=== PATIENT | female | born 1980 | race Caucasian/White ===

== ENCOUNTER 2016-06-22 19:51 | Emergency (ER) | payer OTHER ==
[~2016-06-22] VITALS: Ht 160 cm; Wt 159.8 kg
[2016-06-22 19:55] VITALS: TEMP 36.4; Ht 160 cm; Wt 159.8 kg
[2016-06-22] MEDS ORDERED: IBUP-1050 PO (20:28)
[2016-06-22] MEDS ORDERED: SODIUM CHLORIDE 0.9% 1000ML 1,000 ML IV STA (21:02)
[2016-06-22 21:09] LABS: BASO % 0.2 %; BASO ABS # 0.01 K/uL (0-0.2); COMPLETE YES; EOS % 1.9 %; HEMATOCRIT 38.3 % (37-47); IG% 0.2 %; LYMPH % 33.8 %; LYMPH ABS # 1.99 K/uL (1.2-3.4); MEAN CELL VOLUME 84.5 fL (80-100); MEAN CORPUSCULAR HEMOGLOBIN 28.7 pg (25-34); MEAN CORPUSCULAR HGB CONC 33.9 g/dl (32-36); MEAN PLATELET VOLUME 9.3 fL (7.4-10.4); MONO % 5.3 %; NEUT % 58.6 %; PLATELET COUNT 206 K/uL (130-400); RED BLOOD COUNT 4.53 M/uL (4.2-5.4); WHITE BLOOD COUNT 5.89 K/uL (4.8-10.8)
--- NOTE | 2016-06-22 21:32 | DIAGNOSTIC IMAGING REPORT ---
ABDOMEN AND PELVIS CT WITHOUT CONTRAST CT DOSE: 2089.01 mGy.cm HISTORY: Left-sided flank pain. TECHNIQUE: Multiaxial CT images of the abdomen and pelvis were performed without the use of intravenous and oral contrast according to the standard department stone protocol. COMPARISON STUDY: None. FINDINGS: No renal or ureteral stones. No hydronephrosis. The bladder is unremarkable. Punctate calcifications in the left deep pelvis are consistent with phleboliths. The uterus and bilateral ovaries are within normal limits. No pelvic free fluid. Suboptimal evaluation for bowel pathology due to the lack of intravenous and oral contrast. However, there is no definite bowel wall thickening or obstruction. Normal appendix. The lung bases are clear. Mild degenerative changes within the bilateral sacroiliac joints. No fractures within the visualized osseous structures. The unenhanced liver, spleen, pancreas, adrenal glands, and gallbladder are unremarkable. No retroperitoneal lymphadenopathy. IMPRESSION: No renal stones or hydronephrosis. Electronically signed by: Clark Fuentes M.D. 06/22/2016 9:31 PM Dictated Date/Time: 06/22/2016 9:25 PM
[2016-06-22 21:33] LABS: ALT/SGPT 26 U/L (12-78); BLOOD UREA NITROGEN 11 mg/dl (7-18); BUN/CREATININE RATIO 12.8 (10-20); CALCIUM 9.5 mg/dl (8.5-10.1); CARBON DIOXIDE 24 mmol/L (21-32); CHLORIDE 105 mmol/L (98-107); CREATININE 0.86 mg/dl (0.60-1.20); GLUCOSE 93 mg/dl (70-99); POTASSIUM 3.7 mmol/L (3.5-5.1); SODIUM 140 mmol/L (136-145)
[2016-06-22 21:36] LABS: ALKALINE PHOSPHATASE 114 U/L (45-117); AST/SGOT 20 U/L (15-37)
[2016-06-22 21:53] LABS: URINE APPEARANCE CLOUDY (CLEAR); URINE BILIRUBIN NEG (NEG); URINE COLOR YELLOW; URINE EPITHELIAL CELL AUTO >30 /lpf (0-5); URINE NITRITE NEG (NEG); URINE SPECIFIC GRAVITY 1.018 (1.000-1.030); UROBILINOGEN NEG (NEG)
[2016-06-22 22:06] LABS: MANUAL MICROSCOPIC REQUIRED? NO; REVIEW REQ? YES
[2016-06-22 22:57] VITALS: BP 145/90; PULSE 74; O2SAT 99
--- NOTE | 2016-06-23 19:41 | EMERGENCY ROOM VISIT NOTE ---
ED Visit Note First contact with patient: 20:50 Chief Complaint: Left-sided back pain. History of Present Illness: Ms. Waldron is a 35-year-old white female who ambulates into the ED accompanied by male friend complaining of left sided lower back pain. Historically patient denies any significant past medical history. Patient reports over the last week she has been having a sharp pain intermittently over the left side of her lower back. She places her discomfort just inferior to the costovertebral angle. She currently rates her discomfort 7 /10. She does report intermittently she feels like her pain moves from side to side a few centimeters and tonight there is mild radiation of her pain around the abdomen into the mid axillary area. She has not identified any aggravating or alleviating factors related to the pain. She reports she has been taken ibuprofen without relief of her discomfort. Additionally patient does report she is currently menstruating and her current cycle is normal with no excessive bleeding. She denies any associated symptoms including fevers, chills, sweats, skin eruptions, skin color changes, upper respiratory tract symptoms, cough, shortness of breath, abdominal pain, nausea, vomiting, diarrhea, constipation, rectal bleeding, black/tarry stools, urinary symptoms, hematuria, vaginal discharge, genital paresthesias, bowel and bladder dysfunction, lower extremity weakness/numbness/tingling. Review of Systems: As noted above in history of present illness. All body systems were reviewed and found to be negative as noted above. Past Medical History: Status post section. Current Medications: Ibuprofen. Allergies to Medications: Patient denies. Social History: Patient is currently employed; she feels safe in her home environment; she denies tobacco and alcohol use. Physical Examination: Vital Signs: Date Time Temp Pulse Resp B/P Pulse Ox O2 Delivery O2 Flow Rate FiO2 06/22/16 22:57 74 18 145/90 99 06/22/16 19:55 36.4 93 20 218/130 100 GENERAL: 35-year-old female in mild distress due to pain, nontoxic-appearing, afebrile and hemodynamically stable. NEUROLOGICAL: Awake, alert and oriented to person, place and time. Answering questions appropriately and following commands. Normal gait. Good hand eye coordination. No focal motor sensory deficits. SKIN: Warm, dry and pink. No soft tissue eruptions or trauma noted. HEENT: Atraumatic and normocephalic. PERRL. Sclera white and conjunctiva pink. No drainage from naris. Oral cavity moist and pink. Pharynx is nonerythematous or edematous. Speech normal. No lymphadenopathy. Trachea midline. No jugular venous distention. BACK: No tenderness over the bony thoracic or lumbar spine spine. No tenderness throughout the thoracic and lumbar paraspinous muscles. No palpable muscle spasm. No CVA tenderness. THORAX: Lungs sounds are clear to auscultation and equal bilaterally with symmetrical chest wall. No wheezing, rales or rhonchi. No crepitus, tenderness , subcutaneous air or deformities noted. HEART: Regular rate and rhythm. No gallops, rubs or murmurs are appreciated. ABDOMEN: Obese, soft and nontender. Positive bowel sounds in all quadrants. No guarding, rigidity or organomegaly. EXTREMITIES: Moves all extremities well on command and with purpose. All distal neurovascular statuses are intact and equal bilaterally. ED Course: Patient is assessed as noted above. Laboratory Testing: Test 06/22/16 20:05 06/22/16 20:40 Range/Units Urine Color YELLOW Urine Appearance CLOUDY CLEAR Urine pH 5.0 4.5-7.5 Urine Specific Bentley 1.018 1.000-1.030 Urine Protein NEG NEG Urine Glucose (UA) NEG NEG Urine Ketones NEG NEG Urine Occult Blood 3+ NEG Urine Nitrite NEG NEG Urine Bilirubin NEG NEG Urine Urobilinogen NEG NEG Urine Leukocyte Esterase SMALL NEG Urine WBC (Auto) 5-10 0-5 /hpf Urine RBC (Auto) 0-4 0-4 /hpf Urine Hyaline Casts (Auto) 0 0-5 /lpf Urine Epithelial Cells (Auto) >30 0-5 /lpf Urine Bacteria (Auto) 1+ NEG White Blood Count 5.89 4.8-10.8 K/uL Red Blood Count 4.53 4.2-5.4 M/uL Hemoglobin 13.0 12.0-16.0 g/dL Hematocrit 38.3 37-47 % Mean Corpuscular Volume 84.5 80-100 fL Mean Corpuscular Hemoglobin 28.7 25-34 pg Mean Corpuscular Hemoglobin Concent 33.9 32-36 g/dl Platelet Count 206 130-400 K/uL Mean Platelet Volume 9.3 7.4-10.4 fL Neutrophils (%) (Auto) 58.6 % Lymphocytes (%) (Auto) 33.8 % Monocytes (%) (Auto) 5.3 % Eosinophils (%) (Auto) 1.9 % Basophils (%) (Auto) 0.2 % Neutrophils # (Auto) 3.46 1.4-6.5 K/uL Lymphocytes # (Auto) 1.99 1.2-3.4 K/uL Monocytes # (Auto) 0.31 0.11-0.59 K/uL Eosinophils # (Auto) 0.11 0-0.5 K/uL Basophils # (Auto) 0.01 0-0.2 K/uL RDW Standard Deviation 41.8 36.4-46.3 fL RDW Coefficient of Variation 13.6 11.5-14.5 % Immature Granulocyte % (Auto) 0.2 % Immature Granulocyte # (Auto) 0.01 0.00-0.02 K/uL Sodium Level 140 136-145 mmol/L Potassium Level 3.7 3.5-5.1 mmol/L Chloride Level 105 98-107 mmol/L Carbon Dioxide Level 24 21-32 mmol/L Anion Gap 11.0 3-11 mmol/L Blood Urea Nitrogen 11 7-18 mg/dl Creatinine 0.86 0.60-1.20 mg/dl Est Creatinine Clear Calc Drug Dose 136.1 ml/min Estimated GFR () 100.7 Estimated GFR (Non- 86.9 BUN/Creatinine Ratio 12.8 10-20 Random Glucose 93 70-99 mg/dl Calcium Level 9.5 8.5-10.1 mg/dl Total Bilirubin 0.3 0.2-1 mg/dl Direct Bilirubin < 0.1 0-0.2 mg/dl Aspartate Amino Transf (AST/SGOT) 20 15-37 U/L Alanine Aminotransferase (ALT/SGPT) 26 12-78 U/L Alkaline Phosphatase 114 45-117 U/L Total Protein 8.3 6.4-8.2 gm/dl Albumin 4.1 3.4-5.0 gm/dl Globulin 4.2 2.5-4.0 gm/dl Albumin/Globulin Ratio 1.0 0.9-2 Lipase 105 73-393 U/L Noncontrast Abdominal/Pelvic CT: Was reviewed by myself and read by the radiologist showing no renal stones, no hydronephrosis, bladder is unremarkable , punctate calcifications deep in the left pelvis, uterus and bilateral ovaries are within normal limits, no free fluid in the pelvis, no definitive evidence of wall thickening or obstruction, normal-appearing appendix, mild degenerative changes of the bilateral sacroiliac joints without signs of fracture. Unenhanced liver, spleen, pancreas, treatment plans and gallbladder are unremarkable and no retroperitoneal lymphadenopathy. Patient was hydrated with normal saline; she was offered pain medications multiple times and refused. Patient was reassessed multiple times during her stay in the emergency department. Patient's case was reviewed with Dr. Ceron; we agreed on diagnostic approach, treatment, disposition and plan. Patient was educated about malou's findings and instructed on her treatment plan; she verbalizes understanding and agreement with this plan. Clinical Impression: Left-sided back pain. Decision-Making: Initially my differential diagnosis I considered kidney stone, pancreatitis, pyelonephritis, musculoskeletal disorder, and other causes. Disposition: Patient discharged home in stable condition accompanied by her ; prior to departure she was reassessed and subjectively reported she was feeling the same and rated her discomfort 7/10. Plan: Patient was encouraged to alternate ibuprofen and acetaminophen as needed for pain every 3 hours. Patient was encouraged to use bed lifting and moving techniques as we discussed. Patient was encouraged to follow-up with family physician for recheck in 3-4 days if no better. Patient was encouraged return ED for worsening/uncontrolled pain, fevers, bloody stools, bloody urine, lower extremity weakness/numbness/tingling, bowel and bladder dysfunction, genital/rectal paresthesias or any new/concerning symptoms.
== END 2016-06-22 22:54 | disposition home or self-care (01) ==
LOC: C.EDB 19:53
DX: M54.5 Low back pain (principal)

== ENCOUNTER 2016-11-27 08:17 | Emergency (ER) | payer OTHER ==
[~2016-11-27] VITALS: Ht 160 cm; Wt 160.3 kg
[~2016-11-27 08:17] MED LIST: IBUP-1050 PO
[2016-11-27 08:23] VITALS: TEMP 36.7; Ht 160 cm; Wt 160.3 kg
[2016-11-27 09:02] LABS: BASO % 0.3 %; BASO ABS # 0.02 K/uL (0-0.2); COMPLETE YES; EOS % 1.6 %; HEMATOCRIT 39.2 % (37-47); IG% 0.2 %; LYMPH % 24.4 %; LYMPH ABS # 1.53 K/uL (1.2-3.4); MEAN CELL VOLUME 84.5 fL (80-100); MEAN CORPUSCULAR HEMOGLOBIN 27.8 pg (25-34); MEAN CORPUSCULAR HGB CONC 32.9 g/dl (32-36); MONO % 5.4 %; NEUT % 68.1 %; PLATELET COUNT 194 K/uL (130-400); RED BLOOD COUNT 4.64 M/uL (4.2-5.4); WHITE BLOOD COUNT 6.26 K/uL (4.8-10.8)
[2016-11-27 09:05] LABS: URINE APPEARANCE CLEAR (CLEAR); URINE BILIRUBIN NEG (NEG); URINE COLOR YELLOW; URINE NITRITE NEG (NEG); URINE SPECIFIC GRAVITY 1.007 (1.000-1.030); UROBILINOGEN NEG (NEG); ZZUR CULT IF INDIC CLEAN CATCH NO
[2016-11-27] MEDS ORDERED: ASPI81TA28 PO (09:12)
--- NOTE | 2016-11-27 09:17 | DIAGNOSTIC IMAGING REPORT ---
CT OF THE HEAD WITHOUT CONTRAST CLINICAL HISTORY: Dizziness. Headache. COMPARISON STUDY: No previous studies for comparison. CT DOSE: 700.35 mGycm TECHNIQUE: Helical axial images of the head were obtained without IV contrast. Automated exposure control was utilized for the study. FINDINGS: No acute intracranial hemorrhage, midline shift or mass effect is present. Ventricular system is normal. Basilar cisterns are patent. There are no extra-axial collections. Freed-white differentiation is maintained. There are no findings to suggest acute dural sinus thrombosis or acute territorial infarct. There are no significant calvarial abnormalities. Visualized portions of the sinuses and mastoid air cells are clear. IMPRESSION: No acute intracranial findings. Electronically signed by: Edilberto Downing M.D. 11/27/2016 9:15 AM Dictated Date/Time: 11/27/2016 9:08 AM
[2016-11-27 09:20] LABS: ALT/SGPT 24 U/L (12-78); BLOOD UREA NITROGEN 7 mg/dl (7-18); BUN/CREATININE RATIO 7.2 (10-20); CALCIUM 9.6 mg/dl (8.5-10.1); CARBON DIOXIDE 24 mmol/L (21-32); CHLORIDE 104 mmol/L (98-107); GLUCOSE 104 mg/dl (70-99); POTASSIUM 3.6 mmol/L (3.5-5.1); SODIUM 138 mmol/L (136-145)
[2016-11-27 09:23] LABS: MANUAL MICROSCOPIC REQUIRED? NO; REVIEW REQ? NO
[2016-11-27 09:24] LABS: PREG INTERNAL NEGATIVE QC NEG CLEAR BACKGROUND; PREG INTERNAL POSITIVE QC POS CONTROL LINE
[2016-11-27 09:31] LABS: ALKALINE PHOSPHATASE 90 U/L (45-117); AST/SGOT 13 U/L (15-37)
[2016-11-27 10:10] LABS: LYME DISEASE AB IGG NEG (NEG)
[2016-11-27 10:36] LABS: LYME DISEASE AB IGM EQUIVOCAL (NEG)
--- NOTE | 2016-11-27 10:49 | EMERGENCY ROOM VISIT NOTE ---
History Report prepared by Palomo: Duglas Madrigal Under the Supervision of: Dr. Catherine Chung D.O. First contact with patient: 08:23 Chief Complaint: ILLNESS Stated Complaint: DIZZINESS,HEAD PAIN, BACK PAIN History of Present Illness The patient is a 36 year old female who presents to the Emergency Room with complaints of intermittent episodes of lightheadedness beginning five days ago. She states that her symptoms began with an episode of chills and "flushing" six days ago. She was seen by her PCP for those symptoms the next day and is now scheduled for a head MRI this week. The patient states that she has felt "in a daze" since she saw her PCP. Her symptoms include dizziness, mild intermittent abdominal pain, headache, and neck and left shoulder pain. She states that she has been feeling very anxious lately as well, and is unsure if her symptoms are related to panic. The patient denies any visual changes, chest pain, cough, leg swelling, nausea/vomiting/diarrhea, or SOB. She states that she has been hydrating well, but not been eating well lately. She had an echocardiogram and a stress test earlier this year which both were normal. The patient denies any recent changes to her diet. She denies any recent travel. She denies any recent trauma. The patient has a family history of stroke at a young age. Her brother had multiple strokes in his 20's due to a clotting disorder. She is on aspirin due to this family history, but is not known to have any clotting disorders. Source of History: patient Onset: five days ago Quality: other (lightheadedness) Timing: intermittent Associated Symptoms: + headache, + neck pain, + abdominal pain (intermittent ), No chest pain, No SOB Note: The patient denies any visual changes or leg swelling. She also complains of dizziness and left shoulder pain. Review of Systems See HPI for pertinent positives & negatives. A total of 10 systems reviewed and were otherwise negative. Past Medical & Surgical Medical Problems: (1) No Known Active Medical Problems Surgical Problems: (1) Previous section Family History No pertinent family history stated. Social History Smoking Status: Never Smoker Marital Status: Housing Status: lives with family Current/Historical Medications Scheduled Aspirin (Aspirin Ec), 81 MG PO DAILY Allergies Coded Allergies: No Known Allergies (Unverified , 11/27/16) Physical Exam Vital Signs Date Time Temp Pulse Resp B/P (MAP) Pulse Ox O2 Delivery O2 Flow Rate FiO2 11/27/16 10:58 77 16 148/82 98 11/27/16 10:26 80 16 157/79 84 173/109 89 173/134 11/27/16 09:55 84 16 155/83 100 Room Air 11/27/16 08:23 36.7 102 18 194/106 97 Room Air Physical Exam GENERAL: alert, anxious-appearing, well nourished, no distress, non-toxic EYE EXAM: normal conjunctiva, PERRL and EOM's grossly intact OROPHARYNX: no exudate, no erythema, lips, buccal mucosa, and tongue normal and mucous membranes are moist NECK: supple, no nuchal rigidity, no adenopathy, non-tender LUNGS: Clear to auscultation. Normal chest wall mechanics HEART: no murmurs, S1 normal and S2 normal ABDOMEN: Obese, abdomen soft, non-tender, normo-active bowel sounds, no masses, no rebound or guarding. BACK: Back is symmetrical on inspection and there is no deformity, no midline tenderness, no CVA tenderness. SKIN: no rashes and no bruising UPPER EXTREMITIES: upper extremities are grossly normal. LOWER EXTREMITIES: No pitting edema. NEURO EXAM: Normal sensorium, cranial nerves II-XII grossly intact, normal speech, no gross weakness of arms, no gross weakness of legs. No drift. Finger to nose intact. Gross sensation intact. Hints exam negative. Medical Decision & Procedures ER Provider Diagnostic Interpretation: CT:Per my review, radiologist interpretation. CT OF THE HEAD WITHOUT CONTRAST FINDINGS: No acute intracranial hemorrhage, midline shift or mass effect is present. Ventricular system is normal. Basilar cisterns are patent. There are no extra-axial collections. Freed-white differentiation is maintained. There are no findings to suggest acute dural sinus thrombosis or acute territorial infarct. There are no significant calvarial abnormalities. Visualized portions of the sinuses and mastoid air cells are clear. IMPRESSION: No acute intracranial findings. Electronically signed by: Edilberto Downing M.D. Laboratory Results 11/27/16 08:50 Red Blood Count 4.64, Mean Corpuscular Volume 84.5, Mean Corpuscular Hemoglobin 27.8, Mean Corpuscular Hemoglobin Concent 32.9, Mean Platelet Volume 9.0, Neutrophils (%) (Auto) 68.1, Lymphocytes (%) (Auto) 24.4, Monocytes (%) (Auto) 5.4, Eosinophils (%) (Auto) 1.6, Basophils (%) (Auto) 0.3, Neutrophils # (Auto) 4.26, Lymphocytes # (Auto) 1.53, Monocytes # (Auto) 0.34, Eosinophils # (Auto) 0.10, Basophils # (Auto) 0.02 11/27/16 08:50 Test 11/27/16 08:40 11/27/16 08:50 Urine Color YELLOW Urine Appearance CLEAR (CLEAR) Urine pH 6.0 (4.5-7.5) Urine Specific Mckenna 1.007 (1.000-1.030) Urine Protein NEG (NEG) Urine Glucose (UA) NEG (NEG) Urine Ketones NEG (NEG) Urine Occult Blood NEG (NEG) Urine Nitrite NEG (NEG) Urine Bilirubin NEG (NEG) Urine Urobilinogen NEG (NEG) Urine Leukocyte Esterase NEG (NEG) White Blood Count 6.26 K/uL (4.8-10.8) Red Blood Count 4.64 M/uL (4.2-5.4) Hemoglobin 12.9 g/dL (12.0-16.0) Hematocrit 39.2 % (37-47) Mean Corpuscular Volume 84.5 fL (80-100) Mean Corpuscular Hemoglobin 27.8 pg (25-34) Mean Corpuscular Hemoglobin Concent 32.9 g/dl (32-36) Platelet Count 194 K/uL (130-400) Mean Platelet Volume 9.0 fL (7.4-10.4) Neutrophils (%) (Auto) 68.1 % Lymphocytes (%) (Auto) 24.4 % Monocytes (%) (Auto) 5.4 % Eosinophils (%) (Auto) 1.6 % Basophils (%) (Auto) 0.3 % Neutrophils # (Auto) 4.26 K/uL (1.4-6.5) Lymphocytes # (Auto) 1.53 K/uL (1.2-3.4) Monocytes # (Auto) 0.34 K/uL (0.11-0.59) Eosinophils # (Auto) 0.10 K/uL (0-0.5) Basophils # (Auto) 0.02 K/uL (0-0.2) RDW Standard Deviation 42.5 fL (36.4-46.3) RDW Coefficient of Variation 13.9 % (11.5-14.5) Immature Granulocyte % (Auto) 0.2 % Immature Granulocyte # (Auto) 0.01 K/uL (0.00-0.02) Anion Gap 10.0 mmol/L (3-11) Est Creatinine Clear Calc Drug Dose 116.2 ml/min Estimated GFR () 83.4 Estimated GFR (Non- 71.9 BUN/Creatinine Ratio 7.2 (10-20) Calcium Level 9.6 mg/dl (8.5-10.1) Magnesium Level 2.0 mg/dl (1.8-2.4) Total Bilirubin 0.3 mg/dl (0.2-1) Aspartate Amino Transf (AST/SGOT) 13 U/L (15-37) Alanine Aminotransferase (ALT/SGPT) 24 U/L (12-78) Alkaline Phosphatase 90 U/L (45-117) Troponin I < 0.015 ng/ml (0-0.045) Total Protein 8.0 gm/dl (6.4-8.2) Albumin 3.9 gm/dl (3.4-5.0) Globulin 4.1 gm/dl (2.5-4.0) Albumin/Globulin Ratio 1.0 (0.9-2) Thyroid Stimulating Hormone (TSH) 3.600 uIu/ml (0.300-4.500) Human Chorionic Gonadotropin, Qual NEG (NEG) Lyme Disease IgG Antibody NEG (NEG) Laboratory results per my review. ECG Indication: abdominal pain, other (lightheadedness) Rate (beats per minute): 74 Rhythm: normal sinus Findings: no acute ischemic change, no ectopy, other (Normal intervals. Normal axis. ) ED Course 0826: The patient was evaluated in room A10. A complete history and physical exam was performed. 1027: Upon reevaluation, the patient is feeling better. I discussed the findings and the treatment plan with the patient. She verbalizes agreement and understanding. The patient was discharged home. Medical Decision Differential diagnosis: Etiologies such as benign positional vertigo, dehydration, hypovolemia, anemia, tumor, infection, hypoglycemia, electrolyte abnormalities, cardiac sources, intracerebral event, toxicologic, neurologic, as well as others were entertained. Blood pressure screening: Patient was found to have an elevated blood pressure and was referred to their primary doctor for recheck and further treatment. Medication Reconciliation: I attest that I have personally reviewed the patient' s current medication list. Patient well-appearing here with no current complaints of pain or lightheadedness, states just feeling "fatigued/foggy". Patient with a normal exam at bedside including neurologic testing. CT head negative. Labs otherwise reassuring, no dysrhythmias noted on telemetry, vital signs otherwise stable. Doubt occult infectious etiology, doubt central neurologic etiology of symptoms, possible component of anxiety related to patient's recent symptoms, patient rescheduled with family doctor as an outpatient as scheduled for MRI later on this week. Discussed with patient close follow-up, discussed all results at bedside, discussed symptoms to watch and return for, she verbalized understanding was agreeable with plan. Doubt ACS, dissection, PE, tamponade, effusion, perforation, GI bleed, CVA, central venous sinus thrombus, bowel obstruction, ectopic . Impression Primary Impression: Lightheadedness Additional Impressions: Fatigue Hypertension Scribe Attestation The scribe's documentation has been prepared under my direction and personally reviewed by me in its entirety. I confirm that the note above accurately reflects all work, treatment, procedures, and medical decision making performed by me. Departure Information Dispostion Home / Self-Care Referrals No Doctor, Assigned (PCP) Patient Instructions My [facility] Additional Instructions Please keep your appointment with her family doctor in for the outpatient MRI as scheduled. Please continue your regular aspirin daily. Please stay well- hydrated and in normally. Please avoid any strenuous activity or heavy lifting until you're feeling better. If you develop any increased lightheadedness or dizziness, feels though you're going to faint, develop chest pain, trouble breathing, vomiting, vision changes, numbness or tingling, abdominal pain, or any other new concerns, please return the emergency room. Please have your family doctor recheck your blood pressure as it was mildly elevated here. Problem Qualifiers Additional Impressions: Fatigue Fatigue type: unspecified Qualified Codes: R53.83 - Other fatigue Hypertension Hypertension type: unspecified Qualified Codes: I10 - Essential (primary) hypertension
[2016-11-27 10:58] VITALS: BP 148/82; PULSE 77; O2SAT 98
[2016-11-30 15:40] LABS: 18KDIGG BAND NONREACTIVE (NONREACTIVE); 23KDIGG BAND REACTIVE (NONREACTIVE); 23KDIGM BAND REACTIVE (NONREACTIVE); 28KDIGG BAND NONREACTIVE (NONREACTIVE); 30KDIGG BAND NONREACTIVE (NONREACTIVE); 39KDIGG BAND NONREACTIVE (NONREACTIVE); 39KDIGM BAND NONREACTIVE (NONREACTIVE); 41KDIGG BAND REACTIVE (NONREACTIVE); 41KDIGM BAND NONREACTIVE (NONREACTIVE); 45KDIGG BAND NONREACTIVE (NONREACTIVE); 58KDIGG BAND NONREACTIVE (NONREACTIVE); 66KDIGG BAND NONREACTIVE (NONREACTIVE); 93KDIGG BAND NONREACTIVE (NONREACTIVE)
== END 2016-11-27 10:58 | disposition home or self-care (01) ==
LOC: C.EDB 08:19 → C.EDA 10:58
DX: R42 Dizziness and giddiness (principal); R53.83 Other fatigue; I10 Essential (primary) hypertension; Z82.49 Family history of ischemic heart disease and other diseases of the circulatory system; Z79.82 Long term (current) use of aspirin

== ENCOUNTER 2017-01-13 17:57 | Emergency (ER) | payer OTHER ==
[~2017-01-13] VITALS: Ht 160 cm; Wt 160.7 kg
[~2017-01-13 17:57] MED LIST changes: +ASPI81TA28 PO; -IBUP-1050 PO
[2017-01-13 18:00] VITALS: TEMP 37.1; Ht 160 cm; Wt 160.7 kg
[2017-01-13 18:36] VITALS: O2SAT 96
[2017-01-13] MEDS ORDERED: CITA20TA4 PO (18:38)
[2017-01-13] MEDS ORDERED: LORA-741 PO (18:39)
--- NOTE | 2017-01-13 18:48 | DIAGNOSTIC IMAGING REPORT ---
CHEST ONE VIEW PORTABLE CLINICAL HISTORY: 36 years-old Female presenting with mid sternal CP. TECHNIQUE: Portable upright AP view of the chest was obtained. COMPARISON: None. FINDINGS: Cardiomediastinal silhouette normal. Lungs and pleural spaces clear. Osseous structures normal. Upper abdomen normal. IMPRESSION: 1. No acute cardiopulmonary disease. Electronically signed by: Marcus Negrete M.D. 01/13/2017 6:47 PM Dictated Date/Time: 01/13/2017 6:46 PM
[2017-01-13] MEDS ORDERED: ASPIRIN 324 MG CHEW PO STA (18:52)
--- NOTE | 2017-01-13 18:56 | EMERGENCY ROOM VISIT NOTE ---
History First contact with patient: 18:18 Chief Complaint: CHEST PAIN Stated Complaint: CHEST PAIN, HEAD HURTING, ARM PAIN Nursing Triage Summary: Pt c/o mid chest pain to left underarm to arm and upper back since this afternoon. Had left underarm pain this am. Pt c/o head pain in back of head and down neck for a couple of days. Hx panic attacks. "I feel like I'm dying" History of Present Illness The patient is a 36 year old female who presents to the Emergency Room with complaints of chest pain that started this morning when she woke up. She describes as a sharp, stabbing sensation. It was originally under her left armpit. It has now moved to the center of her chest. The pain is constant. No exacerbating or alleviating factors. It is not worse with deep inspiration or exertion. She does feel slightly nauseated. She denies any dizziness or heart palpitations. She denies any shortness of breath. No recent illnesses. She denies any history of cardiac disease or blood clots. She does admit that this could be related to anxiety. She was started on an antidepressant and anxiety medication a few days ago. She has not yet started her Celexa. She took one dose of Ativan 0.5 mg prior to arrival. Review of Systems 10 system review performed and negative unless noted in HPI or below Past Medical/Surgical History Medical Problems: (1) No Known Active Medical Problems Surgical Problems: (1) Previous section Tubal ligation Anxiety, depression Family History Hypertension Social History Smoking Status: Never Smoker Marital Status: Housing Status: lives with family Current/Historical Medications Scheduled Aspirin (Aspirin Ec), 81 MG PO DAILY Citalopram Hydrobromide (Citalopram Hydrobromide), 20 MG PO DAILY Scheduled PRN Lorazepam (Ativan), 0.5 MG PO BID PRN for Anxiety Physical Exam Vital Signs Date Time Temp Pulse Resp B/P (MAP) Pulse Ox O2 Delivery O2 Flow Rate FiO2 01/13/17 21:34 93 148/96 01/13/17 21:27 86 18 99 Room Air 148/96 01/13/17 19:51 95 18 168/101 97 Room Air 01/13/17 18:36 100 18 163/98 96 Room Air 01/13/17 18:36 96 Room Air 01/13/17 18:01 98 Room Air 01/13/17 18:00 37.1 107 22 144/88 98 Room Air Physical Exam VITALS: Vitals are noted on the nurse's note and reviewed by myself. Vital signs stable. GENERAL: 36-year-old female, anxious in appearance, SKIN: The skin was without rashes, erythema, edema, or bruising. HEAD: Normocephalic atraumatic. MOUTH: Mucous membranes slightly dry NECK: No JVD. HEART: Tachycardic, regular rhythm without murmurs gallops or rubs. LUNGS: Clear to auscultation bilaterally without wheezes, rales or rhonchi. No accessory muscle use. ABDOMEN: Positive bowel sounds x 4.Soft, nontender, without organomegaly. No guarding or rebound tenderness. MUSCULOSKELETAL: No muscle atrophy, erythema, or edema noted. Strength 5/5 throughout. NEURO: Patient was alert and oriented to person place and time. Normal sensation to touch. No focal neurological deficits. Medical Decision & Procedures ER Provider Diagnostic Interpretation: CHEST ONE VIEW PORTABLE CLINICAL HISTORY: 36 years-old Female presenting with mid sternal CP. TECHNIQUE: Portable upright AP view of the chest was obtained. COMPARISON: None. FINDINGS: Cardiomediastinal silhouette normal. Lungs and pleural spaces clear. Osseous structures normal. Upper abdomen normal. IMPRESSION: 1. No acute cardiopulmonary disease. Electronically signed by: Marcus Negrete M.D. 01/13/2017 6:47 PM Dictated Date/Time: 01/13/2017 6:46 PM The status of this report is Signed. Draft = Not yet reviewed or approved by Radiologist. Signed = Reviewed and approved by Radiologist. 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</ PatientName> <DateOfBirth>1980</DateOfBirth> <Location>[facility]</Location> < ServiceDate>01/13/17</ServiceDate> <MNE>ESINDI</MNE> <OrderingPhy>Fariha Christina PA-C</OrderingPhy> <OrderingPhyMNE>f rep ord dr loya</OrderingPhyMNE> < DictatingPhyMNE>f rep dict dr loya</DictatingPhyMNE> <CCListMNE>f rep ct mne</ CCListMNE> <AdmittingPhyMNE>f pt admit dr loya</AdmittingPhyMNE> <AttendingPhyMNE Laboratory Results 01/13/17 18:50 Red Blood Count 4.45, Mean Corpuscular Volume 85.8, Mean Corpuscular Hemoglobin 27.4, Mean Corpuscular Hemoglobin Concent 31.9, Mean Platelet Volume 9.0, Neutrophils (%) (Auto) 72.8, Lymphocytes (%) (Auto) 20.5, Monocytes (%) (Auto) 4.8, Eosinophils (%) (Auto) 1.3, Basophils (%) (Auto) 0.3, Neutrophils # (Auto) 5.77, Lymphocytes # (Auto) 1.62, Monocytes # (Auto) 0.38, Eosinophils # (Auto) 0.10, Basophils # (Auto) 0.02 01/13/17 18:50 Test 01/13/17 18:50 01/13/17 18:55 White Blood Count 7.91 K/uL (4.8-10.8) Red Blood Count 4.45 M/uL (4.2-5.4) Hemoglobin 12.2 g/dL (12.0-16.0) Hematocrit 38.2 % (37-47) Mean Corpuscular Volume 85.8 fL (80-100) Mean Corpuscular Hemoglobin 27.4 pg (25-34) Mean Corpuscular Hemoglobin Concent 31.9 g/dl (32-36) Platelet Count 209 K/uL (130-400) Mean Platelet Volume 9.0 fL (7.4-10.4) Neutrophils (%) (Auto) 72.8 % Lymphocytes (%) (Auto) 20.5 % Monocytes (%) (Auto) 4.8 % Eosinophils (%) (Auto) 1.3 % Basophils (%) (Auto) 0.3 % Neutrophils # (Auto) 5.77 K/uL (1.4-6.5) Lymphocytes # (Auto) 1.62 K/uL (1.2-3.4) Monocytes # (Auto) 0.38 K/uL (0.11-0.59) Eosinophils # (Auto) 0.10 K/uL (0-0.5) Basophils # (Auto) 0.02 K/uL (0-0.2) RDW Standard Deviation 45.0 fL (36.4-46.3) RDW Coefficient of Variation 14.4 % (11.5-14.5) Immature Granulocyte % (Auto) 0.3 % Immature Granulocyte # (Auto) 0.02 K/uL (0.00-0.02) D-Dimer < 190 ug/L FEU (0-500) Anion Gap 8.0 mmol/L (3-11) Est Creatinine Clear Calc Drug Dose 155.2 ml/min Estimated GFR () 118.0 Estimated GFR (Non- 101.8 BUN/Creatinine Ratio 12.9 (10-20) Calcium Level 9.3 mg/dl (8.5-10.1) Total Bilirubin 0.3 mg/dl (0.2-1) Aspartate Amino Transf (AST/SGOT) 25 U/L (15-37) Alanine Aminotransferase (ALT/SGPT) 34 U/L (12-78) Alkaline Phosphatase 98 U/L (45-117) Troponin I < 0.015 ng/ml (0-0.045) Total Protein 7.8 gm/dl (6.4-8.2) Albumin 3.8 gm/dl (3.4-5.0) Globulin 4.0 gm/dl (2.5-4.0) Albumin/Globulin Ratio 1.0 (0.9-2) Lipase 101 U/L (73-393) Urine Test NEG (NEG) Medications Administered Medications (Trade) Dose Ordered Sig/Jf Route Start Time Stop Time Status Last Admin Dose Admin Aspirin (Aspirin Chew) 324 mg NOW STAT PO 01/13/17 18:52 01/13/17 18:53 DC 01/13/17 18:57 324 MG Nitroglycerin (Nitroglycerin 2% Oint) 1 inch NOW ONCE EXT 01/13/17 19:45 01/13/17 19:46 DC 01/13/17 19:42 1 INCH Acetaminophen (Tylenol Tab) 1,000 mg NOW STAT PO 01/13/17 19:32 01/13/17 19:34 DC 01/13/17 19:42 1,000 MG Sodium Chloride 1,000 ml @ 999 mls/hr Q1H1M ONCE IV 01/13/17 19:45 01/13/17 20:45 DC 01/13/17 19:46 999 MLS/HR Metoprolol Tartrate (Lopressor Iv) 5 mg NOW STAT IV 01/13/17 21:22 01/13/17 21:23 DC 01/13/17 21:34 5 MG ECG Indication: chest pain Rate (beats per minute): 104 Rhythm: sinus tachycardia Findings: T-wave inversion (Lateral) Change: no significant change ED Course Patient was seen and examined Vital signs including blood pressure were reviewed medications list was verified with patient EKG was performed. The patient was put on a monitor. Labs were obtained, and a saline lock was established The patient was given aspirin 324 mg. She was also given a dose of Ativan 1 mg IV. She was also given nitroglycerin paste Imaging was performed and reviewed Upon reevaluation, the patient was feeling slightly less anxious. She had less pain in her chest. She was complaining of a headache. She was given Tylenol 1 g po Upon reevaluation, the patient was much calmer and said that that pain had improved I discussed the patient's workup with her. She voiced understanding. The patient then started complaining that her symptoms were returning. A repeat EKG was performed and unchanged. Her blood pressure was slightly elevated. She was given 1 dose of metoprolol 5 mg IV. She was monitored for an additional half hour. Blood pressure and heart rate improved. The patient was more calm upon reevaluation. She did feel comfortable being discharged home. I reviewed discharge instructions the patient. They voiced understanding and had no further questions. Medical Decision Differential diagnosis: Acute myocardial infarction, cardiac arrhythmia, anemia , thyroid abnormality, pneumothorax, pneumonia, bronchitis, pericarditis, electrolyte imbalance , anxiety attack, hypertensive urgency This patient is a 36-year-old female that presented to the ED with complaints of chest pain. She is anxious in appearance. Given her age, I had a low suspicion of cardiac disease. Her EKG is unchanged when compared to her previous. Her symptoms were better with a dose of Ativan. The symptoms are unfortunately returned. Her labs are unremarkable. 2 EKGs were performed and unchanged. The patient has already had an extensive cardiac workup including a stress test. I do not think this pain is cardiac in nature. This is likely related to anxiety. She was however hypertensive. The patient was provided a prescription for metoprolol 12.5 mg twice daily, and instructed to follow-up in the next 2-3 days with her primary care physician. The patient will continue her antidepressant and Ativan as prescribed by her PCP. She was instructed to return to the emergency department with any new medical concerns or worsening symptoms. Blood Pressure Screening Patient's blood pressure: Elevated blood pressure Blood pressure disposition: Did not require urgent referral Impression Primary Impression: Non-cardiac chest pain Additional Impression: Hypertension Departure Information Dispostion Home / Self-Care Condition GOOD Prescriptions Metoprolol Tartrate (Lopressor) (Lopressor) 25 Mg Tab 0.5 TAB PO BID for 15 Days, #15 TAB 1 Refill Prov: Fariha Christina PA-C 01/13/17 Referrals Kristie Borden PA-C (PCP) Patient Instructions My [facility] Additional Instructions You had been treated in the emergency department for chest pain, flushing and anxiety. There are no signs in your workup that say that this is related to your heart. He did however have elevated blood pressure. Please continue your current medications as prescribed. You were provided a prescription for metoprolol, which is for blood pressure. Please take a half tablet twice daily. Please follow-up with her primary care physician within the next 2-3 days to have your blood pressure rechecked. Please return to the emergency department with any worsening symptoms or new medical concerns Problem Qualifiers
[2017-01-13 19:04] LABS: BASO % 0.3 %; BASO ABS # 0.02 K/uL (0-0.2); COMPLETE YES; EOS % 1.3 %; HEMATOCRIT 38.2 % (37-47); IG% 0.3 %; LYMPH % 20.5 %; LYMPH ABS # 1.62 K/uL (1.2-3.4); MEAN CELL VOLUME 85.8 fL (80-100); MEAN CORPUSCULAR HEMOGLOBIN 27.4 pg (25-34); MEAN CORPUSCULAR HGB CONC 31.9 g/dl (32-36); MONO % 4.8 %; NEUT % 72.8 %; PLATELET COUNT 209 K/uL (130-400); RED BLOOD COUNT 4.45 M/uL (4.2-5.4); WHITE BLOOD COUNT 7.91 K/uL (4.8-10.8)
[2017-01-13 19:20] LABS: ALT/SGPT 34 U/L (12-78); AST/SGOT 25 U/L (15-37); BLOOD UREA NITROGEN 10 mg/dl (7-18); BUN/CREATININE RATIO 12.9 (10-20); CALCIUM 9.3 mg/dl (8.5-10.1); CARBON DIOXIDE 25 mmol/L (21-32); CHLORIDE 105 mmol/L (98-107); CREATININE 0.75 mg/dl (0.60-1.20); GLUCOSE 95 mg/dl (70-99); SODIUM 138 mmol/L (136-145)
[2017-01-13 19:25] LABS: ALKALINE PHOSPHATASE 98 U/L (45-117)
[2017-01-13] MEDS ORDERED: ACETAMINOPHEN 500 MG TAB PO STA (19:32)
[2017-01-13] MEDS ORDERED: SODIUM CHLORIDE 0.9% 1000ML 1,000 ML IV ONE (19:45)
[2017-01-13] MEDS ORDERED: NITROGLYCERIN OINT 2% 1GM PACKET EXT ONE (19:45)
[2017-01-13] MEDS ORDERED: METOPROLOL TARTRATE 1 MG/ML VIAL IV STA (21:22)
[2017-01-13] MEDS ORDERED: METO25TA56 PO (22:07)
[2017-01-13 22:11] VITALS: BP 137/82; PULSE 82; O2SAT 97
== END 2017-01-13 22:20 | disposition home or self-care (01) ==
LOC: C.EDB 17:58 → C.EDC 22:20
DX: R07.9 Chest pain, unspecified (principal); I10 Essential (primary) hypertension; F32.9 Major depressive disorder, single episode, unspecified; F41.9 Anxiety disorder, unspecified; Z98.51 Tubal ligation status; Z79.82 Long term (current) use of aspirin; Z79.899 Other long term (current) drug therapy; Z82.49 Family history of ischemic heart disease and other diseases of the circulatory system